=== PATIENT | female | born 1965 | race Caucasian/White ===

== ENCOUNTER 2020-02-24 15:54 | Emergency (ER) | payer BC, SELFPAY ==
[2020-02-24 15:55] VITALS: BP 146/101; PULSE 102; RESP 20; TEMP 36.1; O2SAT 98; BMI 29.2
--- NOTE | 2020-02-24 16:11 | EKG12_ITS ---
Test Reason : Blood Pressure : / mmHG Vent. Rate : 094 BPM Atrial Rate : 094 BPM P-R Int : 150 ms QRS Dur : 076 ms QT Int : 338 ms P-R-T Axes : 066 056 041 degrees QTc Int : 422 ms Normal sinus rhythm Normal ECG Confirmed by DYLON GONZALES, ANIBAL ([id number]), editor trade journal TONIO GAGNON ([id number]) on 02/29/2020 2:16:46 PM Referred By: JODY Confirmed By:TRINITY OSBORNE MD
--- NOTE | 2020-02-24 16:19 | ED.DCSUM_ITS ---
History of Present Illness Chief Complaint: Abd Pain Informant: Patient - Abdominal Pain/Flank Pain Onset: Today Context: Gradual Onset Timing: Continuous Quality: - - severe Location: Epigastric - Nausea/Vomiting/Emesis GI Symptom: Nausea, Vomiting Onset: Today Quality: Blood streaks - Diarrhea/Melena/Hematochezia GI Symptom: Diarrhea. Negative for: Melena, Hematochezia Onset: Today Narrative: Patient is a 54-year-old female that denies any significant past medical history presenting with severe abdominal pain. Patient states it woke her from sleep last night. It is in her epigastric region. The pain does not radiate. It has been constant. She states is very severe and she has associated nausea, vomiting diarrhea. She states she does not really have anything left to throw up but she started to have a little bit of blood in her vomit. She states that she is never had any like this before. She denies associated chest pain, shortness of breath or difficulty breathing. She denies any fever or chills. She denies any upper respiratory symptoms. She denies any urinary symptoms. No other complaints at this time. Past Medical History - Allergies and Home Meds Allergies/Adverse Reactions: Allergies acetaminophen [From Darvocet-N] Allergy (Verified 02/24/20 15:58) Angioedema propoxyphene [From Darvocet-N] Allergy (Verified 02/24/20 15:58) Angioedema Primary Care Physician: NOT,DEFINED [NON-STAFF] - Past Medical History: None Surgical History: cholecystectomy, - - ectopic surgery Review of Systems General: Denies: Chills, Fever, Sweats Eyes: Denies: Visual changes - bilaterally, Diplopia ENT: Denies: Rhinorrhea, Sore throat Cardiovascular: Denies: Chest pain, Palpitations Respiratory: Denies: Dyspnea, Cough, Dyspnea on exertion Gastrointestinal: Reports: Abdominal pain, Nausea, Vomiting, Diarrhea. Denies: Melena, Hematochezia Genitourinary: Denies: Dysuria, Hematuria, Frequency Musculoskeletal: Denies: Back pain, Extremity Pain Skin: Denies: Rash, Wounds Neurological: Denies: Headache, Weakness, Numbness Physical Exam Vital Signs/Narrative: Vital Signs Temp Pulse Resp BP Pulse Ox 02/24/20 15:55 97 F L 102 H 20 H 146/101 H 98 Inital Vital Signs reviewed: Yes General: Well nourished, Well developed, Acute Distress, - - She appears uncomfortable and is rolling around in the bed Head: Normocephalic, Atraumatic Eyes: Perrl, EOMI ENT: Moist mucous membranes, No rhinorrhea Neck: Supple, Nontender Cardiovascular: Regular rate, Regular rhythm, No murmurs Respiratory: No distress, CTA bilaterally, Chest nontender Abdomen: Soft, Nontender, Nondistended, Normal bowel sounds, - - No significant pain elicited on palpation, pain seems to be out of proportion to abdominal exam, no peritoneal signs. Negative for: Guarding, Rebound tenderness, Orellana's sign Back: Nontender, Normal Inspection. Negative for: CVA tenderness Extremities: Nontender, No edema Skin: Normal color, No rash Neurological: Alert, Oriented x3, Cranial nerves II-XII grossly intact, Normal Strength, Normal Sensation Psychological: Normal affect, Normal Mood Diagnostic/Tx/Re-eval Clinical Impression(s) from Imaging Studies Abdomen/Pelvis CT 02/24/20 16:24 IMPRESSION: Small right ovarian cyst. Postop change status post cholecystectomy. No evidence for small bowel obstruction or other acute abnormalities Electronically Signed: Evert Epstein MD at 17:55 EDT , Service support , Laboratory Data 02/24/20 02/24/20 02/24/20 17:03 17:03 17:50 WBC 15.6 H RBC 4.18 L Hgb 11.6 L Hct 36.1 L MCV 86.4 MCH 27.8 MCHC 32.1 RDW Std Deviation 45.7 H RDW Coeff of [place] 14.6 Plt Count 392 MPV 9.4 Immature Gran % (Auto) 0.400 Neut % (Auto) 91.8 H Lymph % (Auto) 5.8 L Kimble % (Auto) 1.9 Eos % (Auto) 0.0 Baso % (Auto) 0.1 Absolute Neuts (auto) 14.3 H Absolute Lymphs (auto) 0.91 Nucleated RBC % 0 Sodium 140 Potassium 3.9 Chloride 106 Carbon Dioxide 26.0 Anion Gap 8 BUN 9 Creatinine 0.68 Estim Creat Clear Calc 80.06 Est GFR (MDRD) Af Amer 118 Est GFR (MDRD) Non-Af 97 BUN/Creatinine Ratio 13.3 Glucose 128 H Calcium 8.7 Total Bilirubin 0.20 AST 27 ALT 35 Alkaline Phosphatase 130 H Troponin I < 0.015 Total Protein 8.3 H Albumin 3.8 Globulin 4.5 H Albumin/Globulin Ratio 0.8 L Lipase 91 Urine Color Yellow Urine Clarity Sl. Cloudy Urine pH 8.0 Ur Specific [place] 1.010 Urine Protein Negative Urine Glucose (UA) Normal Urine Ketones Negative Urine Occult Blood Negative Urine Nitrite Negative Urine Bilirubin Negative Urine Urobilinogen Normal Ur Leukocyte Esterase Negative Urine RBC 0 SEEN Urine WBC 0 SEEN Ur Squamous Epith Cells 0-5 SEEN Urine Bacteria 0 SEEN Urine Mucus 0 SEEN - Rhythm Strip Rhythm Strip: Sinus Rhythm Rate: 94 Ectopy: None - EKG Initial EKG Interpretation: Sinus Rhythm - 94, - - Normal intervals Normal axis Normal ST segments - Medical Decision Making Patient evaluated for epigastric abdominal pain. She appears nontoxic but quite uncomfortable.Patient's vital signs remarkable only for very mild tachycardia. Abdomen is soft with no significant tenderness to palpation. Patient does have an elevated white blood cell count of 15.6. Her CMP is remarkable only for mildly elevated alkaline phosphatase of 130. Her bilirubin is normal. Her lipase is normal. Her urinalysis is normal. CT the abdomen pelvis obtained which only shows a right ovarian cyst. This not correspond with patient's pain. Patient is not have any signs of free air, acute pancreatitis or acute liver pathology. CT does show a surgically removed gallbladder. On reevaluation patient still having a lot of pain. She initially received Zofran and IV morphine. Patient is been redosed with 0.5 mg of IV Dilaudid. She is now more comfortable. Patient is given IV Protonix I suspect she has stomach pain as a cause of her symptoms. She notes that she does have a history of heartburn. She is not on any antacids at baseline. Patient is given a GI cocktail which improves her symptoms further. She was discharged home in a course of Pepcid. She does request 1 pill prescription for strong pain medication in case her pain comes back severe tonight. This is given to her. She is given prescription for 1 oxycodone 5 mg. Patient does not currently have a PCP. She is given referral to PCP in [place] as well as a local 1. Patient states her goes to PCP Jennifer which is why she be interested in that. Patient's cardiac work-up is unremarkable. She is hemodynamically stable in the emergency room. I do not think she needs admission for her pain or surgical evaluation at this time. Is likely that she has peptic ulcer disease or gastritis as a cause of her symptoms. Patient is counseled on signs and symptoms requiring return to the emergency room. Patient verbalizes agreement and understand this plan. Patient discharged home in stable and improved condition. ED Disposition - Plan for ED Patient: Disposition: Home or Assisted Living Diagnosis: Epigastric abdominal pain Instructions: ED PEPTIC ULCER vs GASTRITIS Prescriptions: Oxycodone [Oxyir] 5 mg PO X1 PRN 1 Days #1 tab PRN Reason: Pain Score 6-10/10 Prescription Printed Famotidine [Pepcid] 20 mg PO BID #28 tab Prescription Printed Referrals: Jewel Ramos DO [NON-STAFF] - Mikey Farias MD [NON-STAFF] -
[2020-02-24] MEDS: 0.9% Normal Saline 1,000 ML 999 ML IV (16:22)
[2020-02-24] MEDS: Morphine 4 MG/ML Syringe IV (16:22)
[2020-02-24] MEDS: Ondansetron 4 MG/2 ML Vial IV (16:22)
--- NOTE | 2020-02-24 16:24 | CT_ITS ---
STUDY: CT ABDOMEN AND PELVIS WITH CONTRAST REASON FOR EXAM: Female, 54 years old. EPIGASTRIC ABD PAIN, NAUSEA/VOMITING SINCE THIS AM. DIARRHEA RADIATION DOSAGE (If Supplied By Facility): CTDIvol = ( 12.34 ) mGy, DLP = ( 589.47 ) mGycm TECHNIQUE: Transaxial images were obtained from the dome of the diaphragm to the symphysis pubis without oral contrast. IV 100 ML ISOVUE 300 was administered. Sagittal and coronal images were reconstructed. Individualized dose optimization techniques were used for this CT. COMPARISON: None. FINDINGS: The visualized lung bases are unremarkable. The visualized portions of the heart are within normal limits. Normal liver. Gallbladder has been removed surgically.. Normal spleen. Normal pancreas. Normal bilateral adrenal glands. Normal right kidney. Normal left kidney. Normal visualized stomach. Normal small intestine. Normal colon. The appendix is visualized and appears normal. Normal abdominal aorta. Normal inferior vena cava. Normal retroperitoneum. Normal urinary bladder. Uterus is mildly deviated towards the right. There is a cystic mass in the right adnexa measuring approximately 1.95 x 1.4 cm likely ovarian Normal abdominal wall. Lumbar spine demonstrates mild spondylosis CT/Abdomen/Pelvis W IV Cont ONLY IMPRESSION: Small right ovarian cyst. Postop change status post cholecystectomy. No evidence for small bowel obstruction or other acute abnormalities Electronically Signed: Evert Epstein MD at 17:55 EDT , Service support ,
[2020-02-24 17:11] LABS: Absolute Lymphocyte Count 0.91 X10^3/uL (0.83-4.51); Absolute Neutrophil Count 14.3 X10^3/uL (2.0-7.7); Basophil# 0.02 X10^3/uL; Basophil% 0.1 % (0-1); Hematocrit 36.1 % (37-47); Hemoglobin 11.6 g/dL (12.0-15.0); Lymphocyte # 0.91 X10^3/ul (4.0); Lymphocyte % 5.8 % (19-41); Mean Corp Hgb Conc 32.1 g/dL (32-36); Mean Corpuscular Hgb 27.8 pg (27.0-32.0); Mean Corpuscular Volume 86.4 fL (81-99); Mean Platelet Vol. 9.4 fl (6.2-12.0); Monocyte% 1.9 % (0-10); NRBC Flagged by Analyzer 0 % (0-5); Neutrophil # 14.26 X10^3/uL (2.7-7.7); Neutrophil % 91.8 % (47-70); Platelet Count 392 K/mm3 (150-450); RBC Distribution Width CV 14.6 % (11.6-14.6); RBC Distribution Width SD 45.7 fl (35.1-43.9); Red Blood Count 4.18 M/mm3 (4.2-5.4); White Blood Count 15.6 K/mm3 (4.4-11.0)
[2020-02-24 17:30] LABS: ALB/GLOB Ratio 0.8 RATIO (0.9-2.4); AST(SGOT) 27 U/L (15-37); Alanine Aminotransfer ALT/SGPT 35 U/L (13-56); Albumin, Serum 3.8 g/dL (3.2-5.0); Alkaline Phosphatase 130 U/L (45-117); Anion Gap 8 (5-15); BUN 9 mg/dL (7-18); BUN/Creat Ratio 13.3 RATIO (10-20); Calcium,Total 8.7 mg/dL (8.5-10.1); Chloride 106 mmol/L (98-107); Creatinine, Serum 0.68 mg/dL (0.55-1.02); EST Glomerular Filtration Rate 97 mL/min (>60); Est Glom Filt Rate - Afr Amer 118 mL/min (>60); Estimated Creatinine Clearance 80.06 ml/min; Globulin 4.5 g/dL (2.2-4.2); Glucose 128 mg/dL (74-106); Lipase 91 U/L (73-393); Potassium 3.9 mmol/L (3.5-5.1); Protein, Total 8.3 g/dL (6.4-8.2); Sodium Level 140 mmol/L (136-145)
[2020-02-24 17:57] LABS: Bacteria 0 SEEN /hpf (None Seen); Mucous, Urine 0 SEEN /hpf (<or=2+); Red Blood Cells-Urine 0 SEEN /hpf (0-5); White Blood Cells 0 SEEN /hpf (0-5)
[2020-02-24] MEDS: HYDROmorphone 0.5 MG/0.5 ML SYRINGE IV (17:58)
[2020-02-24 18:00] VITALS: BP 151/91; PULSE 100; RESP 18; O2SAT 90
[2020-02-24 18:01] LABS: Color, Urine Yellow (Yellow); Glucose, Dipstick Normal (Normal); Ketone-Dipstick Negative (Negative); Leukocyte Esterase-Dipstick Negative /ul (Negative); Nitrite-Dipstick Negative (Negative); Occult Blood-Urine Negative /ul (Negative); Protein-Dipstick Negative (Negative); Urine Bilirubin Dipstick Negative (Negative); Urine Clarity Sl. Cloudy (Clear); Urine Urobilinogen Normal (Normal)
[2020-02-24 18:13] LABS: Squamous Epithelial Cells - UA 0-5 SEEN /hpf (5-10)
[2020-02-24 19:01] VITALS: BP 118/60; PULSE 87; RESP 16; O2SAT 96
[2020-02-24] MEDS: Mag Hydrox/Al Hydrox/Simeth 30 ML UDC PO (19:08)
[2020-02-24 19:14] VITALS: BP 118/60; PULSE 96; RESP 16; O2SAT 97
== END 2020-02-24 19:53 | disposition home or self-care (01) ==
PROVIDERS: Emergency Provider Emergency Medicine; PCP Nurse Practitioner Family
DX: R10.13 Epigastric pain (principal); R11.2 Nausea with vomiting, unspecified; R19.7 Diarrhea, unspecified; R74.8 Abnormal levels of other serum enzymes; D72.829 Elevated white blood cell count, unspecified; N83.201 Unspecified ovarian cyst, right side; Z90.49 Acquired absence of other specified parts of digestive tract
CPT/HCPCS: 74177; 80053; 81001; 83690; 84484; 85025; 93005; 96365; 96366; 96375; 99285; J7030; A4216; J2405

== ENCOUNTER 2020-02-26 08:19 | Emergency (ER) | payer BC, SELFPAY ==
[2020-02-26 08:22] VITALS: BP 176/86; PULSE 84; RESP 17; TEMP 37; O2SAT 97; BMI 28.3
--- NOTE | 2020-02-26 09:02 | RAD_ITS ---
STUDY: X-RAY - ACUTE ABDOMINAL SERIES REASON FOR EXAM: Female, 54 years old. EPIGASTRIC PAIN TECHNIQUE: Single view of the chest. Supine, and upright view(s) of the abdomen were obtained. COMPARISON: None. FINDINGS: The lungs are clear and expanded. Normal size heart. Normal mediastinum and kelly. Normal visualized pulmonary arteries. Normal visualized aortic arch and descending thoracic aorta. There is a non-specific bowel gas pattern. The soft tissue structures of the abdomen and pelvis are unremarkable. Normal visualized osseous structures. RAD/Acute Abdomen Inc Chest IMPRESSION: Normal x-ray examination of the chest, abdomen, and pelvis. Electronically Signed: Uday Vazquez MD at 9:42 EDT , Service support ,
--- NOTE | 2020-02-26 09:02 | EKG12_ITS ---
Test Reason : ABDOMINAL PAIN Blood Pressure : / mmHG Vent. Rate : 075 BPM Atrial Rate : 075 BPM P-R Int : 140 ms QRS Dur : 076 ms QT Int : 358 ms P-R-T Axes : 067 063 052 degrees QTc Int : 399 ms Normal sinus rhythm Normal ECG Confirmed by MANOLO GONZALES, JAMIE ([id number]), writer editor TONIO GAGNON ([id number]) on 02/29/2020 1:52:11 PM Referred By: YANI Confirmed By:JAMIE FRENCH MD
--- NOTE | 2020-02-26 09:06 | ED.RN ---
NO OLD EKG
[2020-02-26] MEDS: 0.9% Normal Saline 1,000 ML 1000 ML IV (09:09)
[2020-02-26] MEDS: Ondansetron 4 MG/2 ML Vial IV (09:10)
[2020-02-26] MEDS: Morphine 4 MG/ML Syringe IV (09:11)
--- NOTE | 2020-02-26 09:20 | ED.DCSUM_ITS ---
- ER Visit Summary Date of Service: 02/26/20 Chief Complaint: Abdominal pain History of Present Illness: The patient is a 54 F who presents with epigastric abdominal pain for the past 3 days. Patient was seen here 2 days ago. Patient states her pain improved while she was here. Patient states her pain has been getting progressively worse. Patient states the pain is over the epigastric area. Patient describes the pain as throbbing and burning. Patient admits to some nausea and vomiting. Patient states she has been unable to keep anything down including her medications. Patient also admits to some diarrhea. Patient denies any fevers or chills. Patient denies any urinary complaints. Physical Examination: Vital signs are stable. Patient is afebrile. Patient is in no acute distress. Oral mucosa is pink and moist. Oropharynx is clear. Neck is supple. Trachea is midline. There is no JVD. Heart was regular rate and rhythm. Lungs are clear and equal bilaterally. Abdomen is soft. Bowel sounds are normal. There is epigastric tenderness. There is no rebound or guarding noted. Cranial nerves II through XII are intact. There are no focal motor or sensory deficits. Extremities are intact. There is no calf tenderness or edema. Test Results: CBC shows a slight leukocytosis of 11.8. This was improved compared to result from 2 days ago. Comprehensive metabolic profile was within normal limits. Urinalysis does not show any evidence of urinary tract infection. Serum hCG was negative. EKG showed normal sinus rhythm with a rate of 75. There are no acute ST or T wave changes. Troponin was normal. Acute abdominal x-rays were obtained. There is no acute intra-abdominal process. This was interpreted by the radiologist and myself. Emergency Department Course and Treatment: Patient was given IV fluids, Zofran, and morphine. Patient was given a repeat dose of Dilaudid. Patient was feeling better after this. Patient was given a prescription for Zofran. Patient was also given a prescription for 2 Percocet tablets to take as needed for pain. Patient was instructed to continue her Pepcid as previously prescribed. Patient was instructed to follow-up with her primary care physician in 3 to 5 days. Patient understood and was agreeable with the plan. All questions were answered. Disposition: Discharge home Impression: Epigastric abdominal pain This note was generated with [employer] software. It may contain incorrect words, spelling, and punctuation that were not noted in review of the chart prior to signing ED Disposition - Plan for ED Patient: Disposition: Home or Assisted Living Diagnosis: Epigastric abdominal pain Instructions: ED Abdominal Pain Unkn Cause Fem Prescriptions: Oxycodone [Oxyir] 5 mg PO Q4H PRN PRN 1 Days #2 tab PRN Reason: Pain Score 6-10/10 Prescription Printed Ondansetron [Zofran Odt] 4 mg PO Q8H PRN PRN #10 tab PRN Reason: Nausea Prescription Printed Referrals: Kady Hernandez NP-C [Primary Care Provider] - 3-5 Days
[2020-02-26] MEDS: Mag Hydrox/Al Hydrox/Simeth 30 ML UDC PO (09:22)
[2020-02-26 09:30] LABS: Absolute Lymphocyte Count 1.72 X10^3/uL (0.83-4.51); Absolute Neutrophil Count 8.8 X10^3/uL (2.0-7.7); Basophil# 0.05 X10^3/uL; Basophil% 0.4 % (0-1); Eosinophil# 0.25 X10^3/uL; Eosinophils% 2.1 % (0-5); Hematocrit 36.3 % (37-47); Hemoglobin 11.6 g/dL (12.0-15.0); Lymphocyte # 1.72 X10^3/ul (4.0); Lymphocyte % 14.6 % (19-41); Mean Corpuscular Hgb 27.5 pg (27.0-32.0); Mean Platelet Vol. 9.6 fl (6.2-12.0); Monocyte# 0.87 X10^3/uL; Monocyte% 7.4 % (0-10); NRBC Flagged by Analyzer 0 % (0-5); Neutrophil # 8.83 X10^3/uL (2.7-7.7); Neutrophil % 75.1 % (47-70); Platelet Count 407 K/mm3 (150-450); RBC Distribution Width CV 14.6 % (11.6-14.6); RBC Distribution Width SD 45.5 fl (35.1-43.9); Red Blood Count 4.22 M/mm3 (4.2-5.4); White Blood Count 11.8 K/mm3 (4.4-11.0)
[2020-02-26 09:47] LABS: ALB/GLOB Ratio 0.9 RATIO (0.9-2.4); AST(SGOT) 25 U/L (15-37); Alanine Aminotransfer ALT/SGPT 30 U/L (13-56); Albumin, Serum 3.7 g/dL (3.2-5.0); Alkaline Phosphatase 118 U/L (45-117); Anion Gap 9 (5-15); BUN 12 mg/dL (7-18); BUN/Creat Ratio 16.3 RATIO (10-20); Calcium,Total 8.8 mg/dL (8.5-10.1); Chloride 105 mmol/L (98-107); Creatinine, Serum 0.74 mg/dL (0.55-1.02); EST Glomerular Filtration Rate 88 mL/min (>60); Est Glom Filt Rate - Afr Amer 106 mL/min (>60); Estimated Creatinine Clearance 73.56 ml/min; Globulin 4.1 g/dL (2.2-4.2); Glucose 130 mg/dL (74-106); Lipase 131 U/L (73-393); Potassium 3.4 mmol/L (3.5-5.1); Protein, Total 7.8 g/dL (6.4-8.2); Sodium Level 141 mmol/L (136-145)
[2020-02-26] MEDS: HYDROmorphone 0.5 MG/0.5 ML SYRINGE IV (09:56)
[2020-02-26 10:26] VITALS: BP 130/93; PULSE 89; RESP 14; O2SAT 96
[2020-02-26 10:51] LABS: Mucous, Urine 0 SEEN /hpf (<or=2+); Red Blood Cells-Urine 0 SEEN /hpf (0-5); Squamous Epithelial Cells - UA 0 SEEN /hpf (5-10)
[2020-02-26 10:57] LABS: Color, Urine Yellow (Yellow); Glucose, Dipstick Normal (Normal); Ketone-Dipstick 5 mg/dl (Negative); Leukocyte Esterase-Dipstick 25 /ul (Negative); Nitrite-Dipstick Negative (Negative); Occult Blood-Urine Negative /ul (Negative); Protein-Dipstick Negative (Negative); Specific Gravity, Urine 1.015 (1.002-1.030); Urine Bilirubin Dipstick Negative (Negative); Urine Clarity Clear (Clear); Urine Urobilinogen Normal (Normal)
[2020-02-26 11:17] LABS: Bacteria 1+ /hpf (None Seen); White Blood Cells 0-5 SEEN /hpf (0-5)
[2020-02-26 11:23] LABS: Internal QC Validated? YES +Cl - CLEAR BKGD; Pregnancy, Serum, hCG Quali. NEGATIVE Negative
[2020-02-26 12:36] VITALS: BP 125/77; PULSE 71; RESP 14; O2SAT 96
[2020-02-26 13:52] VITALS: BP 140/81; PULSE 80; RESP 16; O2SAT 96
== END 2020-02-26 13:53 | disposition home or self-care (01) ==
PROVIDERS: Emergency Provider Emergency Medicine; PCP Nurse Practitioner Family
DX: R10.13 Epigastric pain (principal); R11.2 Nausea with vomiting, unspecified; R19.7 Diarrhea, unspecified
CPT/HCPCS: 74022; 80053; 81001; 83690; 84484; 84703; 85025; 93005; 96361; 96374; 96375; 99285; J7030; A4216; J2405

== ENCOUNTER 2020-07-01 11:48 | Emergency (ER) | payer BC, SELFPAY ==
[2020-07-01 11:48] VITALS: BP 178/97; PULSE 107; RESP 18; TEMP 36.9; O2SAT 100; BMI 25.4
--- NOTE | 2020-07-01 11:50 | ED.VIS.GEN ---
History of Present Illness Chief Complaint: Abd Pain Informant: Patient Narrative: Patient presenting with burning stomach pain after eating a [employer] lacy double cheeseburger last evening. She states that she has had similar pain like this in the past and was seen in the ED. She states that after her last treatment in the ED she had been doing fine. She states that she has been vomiting all night. She initially could not make GI follow-up due to COVID?19 pandemic. She has an appointment to see her PCP to get a referral. She denies fever. She denies black or bloody stools. She denies chest pain or shortness of breath. Past Medical History - Allergies and Home Meds Allergies/Adverse Reactions: Allergies acetaminophen [From Darvocet-N] Allergy (Verified 07/01/20 11:48) Angioedema propoxyphene [From Darvocet-N] Allergy (Verified 07/01/20 11:48) Angioedema Primary Care Physician: Kady Hernandez NP-C [Primary Care Provider] - Prior records reviewed: Yes Surgical History: cholecystectomy, - - ectopic surgery Lives: Spouse/ Significant Other Smoking Status: Never smoker Alcohol: None Drugs: None Review of Systems General: Denies: Chills, Fever, Sweats Eyes: Denies: Visual changes - bilaterally, Diplopia ENT: Denies: Rhinorrhea, Sore throat Cardiovascular: Denies: Chest pain, Palpitations Respiratory: Denies: Dyspnea, Cough, Dyspnea on exertion Gastrointestinal: Reports: Abdominal pain, Nausea, Vomiting. Denies: Melena, Hematochezia Genitourinary: Denies: Dysuria, Hematuria Musculoskeletal: Denies: Myalgias Skin: Denies: Rash Neurological: Denies: Headache, Weakness Physical Exam General: Well nourished, No Acute Distress Head: Normocephalic, Atraumatic Eyes: Perrl. Negative for: Scleral icterus ENT: Moist mucous membranes Cardiovascular: Regular rate, Regular rhythm Respiratory: No distress Abdomen: Soft, - - Tenderness to palpation epigastric region. Back: Nontender Extremities: Nontender Skin: Normal color, No rash. Negative for: Jaundice Neurological: Alert, Oriented x3 Psychological: Normal affect Diagnostic/Tx/Re-eval - Medical Decision Making Resents with epigastric pain similar to previous pain she has had with gastric ulcer. She states that she ate a lacy double cheeseburger and this started her pain. She states is not a drinker and she has no history of pancreatitis. She was given morphine and Zofran and this did help her pain. She requests a second dose prior to discharge. I did send her home with Pepcid. She is counseled on a bland diet. She is to follow-up with her PCP. She was given return precautions. Impression: 1. Epigastric pain 2. History of gastric ulcer ED Disposition - Plan for ED Patient: Disposition: Home or Assisted Living Instructions: ED Epigastric Pain [facility] Prescriptions: Ondansetron [Ondansetron Odt] 4 mg PO Q8 #14 tab.rapdis Prescription Printed Famotidine [Pepcid] 20 mg PO BID #28 tab Prescription Printed Oxycodone HCl/Acetaminophen [Percocet 5/325] 1 tab PO Q6H PRN PRN 1 Days #2 tab PRN Reason: Pain Score 4-5/10 Prescription Printed Referrals: Kady Hernandez, [facility] [Primary Care Provider] -
[2020-07-01] MEDS: 0.9% Normal Saline 1,000 ML 1000 ML IV (12:10)
[2020-07-01] MEDS: Famotidine 200 MG/20 ML MDV 20 MG in 0.9% Normal Saline (Pres. free 8 ML 300 MG IV (12:10)
[2020-07-01] MEDS: Ondansetron 4 MG/2 ML Vial IV (12:10)
[2020-07-01] MEDS: Morphine 4 MG/ML Syringe IV (12:10)
[2020-07-01 12:32] LABS: Absolute Lymphocyte Count 0.83 X10^3/uL (0.83-4.51); Absolute Neutrophil Count 8.9 X10^3/uL (2.0-7.7); Basophil# 0.02 X10^3/uL; Basophil% 0.2 % (0-1); Hematocrit 39.2 % (37-47); Hemoglobin 13.1 g/dL (12.0-15.0); Lymphocyte # 0.83 X10^3/ul (4.0); Lymphocyte % 8.3 % (19-41); Mean Corp Hgb Conc 33.4 g/dL (32-36); Mean Corpuscular Volume 86.9 fL (81-99); Monocyte# 0.22 X10^3/uL; Monocyte% 2.2 % (0-10); NRBC Flagged by Analyzer 0 % (0-5); Neutrophil # 8.91 X10^3/uL (2.7-7.7); Platelet Count 363 K/mm3 (150-450); RBC Distribution Width CV 14.5 % (11.6-14.6); RBC Distribution Width SD 46.2 fl (35.1-43.9); Red Blood Count 4.51 M/mm3 (4.2-5.4)
[2020-07-01 12:40] LABS: Lipase 49 U/L (73-393)
[2020-07-01] MEDS: oxyCODONE 5 MG Tablet PO (14:35)
[2020-07-01 14:41] VITALS: BP 128/67; PULSE 91; RESP 17; O2SAT 100
--- NOTE | 2020-07-01 14:42 | ED.RN ---
IV DC'ED, CATHETER INTACT, SMALL GAUZE DRESSING PLACED. DISCHARGE INSTRUCTIONS GIVEN TO AND REVIEWED WITH PATIENT, PATIENT DENIES QUESTIONS OR CONCERNS AND VOICES UNDERSTANDING OF DISCHARGE INSTRUCTIONS. PT AMBULATES OUT OF ROOM WITHOUT DIFFICULTY.
== END 2020-07-01 14:43 | disposition home or self-care (01) ==
PROVIDERS: Emergency Provider Student in an Organized Health Care Education/Training Program; PCP Nurse Practitioner Family
DX: R10.13 Epigastric pain (principal); R11.10 Vomiting, unspecified; Z87.11 Personal history of peptic ulcer disease; Z90.49 Acquired absence of other specified parts of digestive tract; Z79.899 Other long term (current) drug therapy
CPT/HCPCS: 83690; 85025; 96361; 96374; 96375; 99284; J7030; J2405; J3490

== ENCOUNTER 2020-07-03 06:46 | Emergency (ER) | payer BC, SELFPAY ==
[2020-07-03 06:47] VITALS: BP 144/73; PULSE 72; RESP 19; TEMP 36.8; O2SAT 97; BMI 38.3
--- NOTE | 2020-07-03 07:04 | CT_ITS ---
STUDY: CT ABDOMEN AND PELVIS WITH CONTRAST REASON FOR EXAM: Female, 54 years old. ABD PAIN, VOMITING RADIATION DOSAGE (If Supplied By Facility): CTDIvol = ( 10.21 ) mGy, DLP = ( 477.99 ) mGycm TECHNIQUE: Transaxial images were obtained from the dome of the diaphragm to the symphysis pubis without oral contrast. IV 100mL Isovue-300 was administered. Sagittal and coronal images were reconstructed. Individualized dose optimization techniques were used for this CT. COMPARISON: Comparison is made with prior examination dated 02/24/2020. FINDINGS: The visualized lung bases are unremarkable. The visualized portions of the heart are within normal limits. Normal liver. There are surgical clips in the gallbladder fossa consistent with a prior cholecystectomy. The common bile duct measures 10.4 mm in diameter most likely secondary to the post cholecystectomy state. Normal spleen. Normal pancreas. Normal bilateral adrenal glands. Normal right kidney. Normal left kidney. There is a small hiatal hernia. Normal small intestine. Normal colon. The appendix is visualized and appears normal. Normal abdominal aorta. Normal inferior vena cava. Normal retroperitoneum. Normal urinary bladder. Normal abdominal wall. Mild levoscoliosis. Loss of the normal lumbar lordosis. Disc space narrowing and disc degeneration at the L5-S1 level. CT/Abdomen/Pelvis W IV Cont ONLY IMPRESSION: Status post cholecystectomy. Mildly dilated common bile duct although this may be normal for the postcholecystectomy state. Electronically Signed: Ravindra Canas, at 8:06 EDT , Service support ,
--- NOTE | 2020-07-03 07:05 | ED.DCSUM_ITS ---
History of Present Illness Chief Complaint: Abd Pain Informant: Patient Narrative: Patient states that last she developed burning epigastric pain vomiting and diarrhea. She was seen in the emergency department on the had a normal white blood cell count and lipase level. She states that after morphine and nausea medication she felt better. She was discharged home with Zofran prescription for Pepcid. She tells me that she could not get the Pepcid filled due to a national shortage. She states she is continued to vomit beginning last night and the pain has returned. Does not radiate to the back. No shortness of breath or chest pain. She continues to have diarrhea. No fevers. She has had prior cholecystectomy. No history of pancreatitis. She denies any history of colitis or bowel obstruction. She reports she has an upcoming appointment with gastroenterology. Past Medical History - Allergies and Home Meds Allergies/Adverse Reactions: Allergies acetaminophen [From Darvocet-N] Allergy (Verified 07/03/20 06:51) Angioedema propoxyphene [From Darvocet-N] Allergy (Verified 07/03/20 06:51) Angioedema Primary Care Physician: Kady Hernandez NP-C [Primary Care Provider] - Surgical History: cholecystectomy, - - ectopic surgery Smoking Status: Former smoker Review of Systems General: Denies: Chills, Fever, Sweats Eyes: Denies: Visual changes - bilaterally, Diplopia ENT: Denies: Rhinorrhea, Sore throat Cardiovascular: Denies: Chest pain, Palpitations Respiratory: Denies: Dyspnea, Cough, Dyspnea on exertion Gastrointestinal: Reports: Abdominal pain, Nausea, Vomiting, Diarrhea. Denies: Melena, Hematochezia Genitourinary: Denies: Dysuria, Hematuria, Frequency Musculoskeletal: Denies: Back pain, Extremity Pain Skin: Denies: Rash, Wounds Neurological: Denies: Headache, Weakness, Numbness Physical Exam Vital Signs/Narrative: Vital Signs Temp Pulse Resp BP Pulse Ox 07/03/20 06:47 98.2 F 72 19 H 144/73 H 97 Inital Vital Signs reviewed: Yes General: Well nourished, Well developed, No Acute Distress, - - Patient holding her upper abdomen and writhing in bed. Head: Normocephalic, Atraumatic Eyes: Perrl, EOMI ENT: Moist mucous membranes, No rhinorrhea Neck: Supple, Nontender Cardiovascular: Regular rate, Regular rhythm, No murmurs Respiratory: No distress, CTA bilaterally, Chest nontender Abdomen: Soft, Nondistended, Normal bowel sounds, Tender. Negative for: Guarding, Rebound tenderness Back: Nontender, Normal Inspection Extremities: Nontender, No edema Skin: Normal color, No rash Neurological: Alert, Oriented x3, Cranial nerves II-XII grossly intact, Normal Strength, Normal Sensation Psychological: Normal affect, Normal Mood Diagnostic/Tx/Re-eval Clinical Impression(s) from Imaging Studies Abdomen/Pelvis CT 07/03/20 07:04 IMPRESSION: Status post cholecystectomy. Mildly dilated common bile duct although this may be normal for the postcholecystectomy state. Electronically Signed: Ravindra Canas, at 8:06 EDT , Service support , Laboratory Last Values WBC 10.7 K/mm3 (4.4-11.0) 07/03/20 07:00 RBC 4.64 M/mm3 (4.2-5.4) 07/03/20 07:00 Hgb 13.4 g/dL (12.0-15.0) 07/03/20 07:00 Hct 41.0 % (37-47) 07/03/20 07:00 MCV 88.4 fL (81-99) 07/03/20 07:00 MCH 28.9 pg (27.0-32.0) 07/03/20 07:00 MCHC 32.7 g/dL (32-36) 07/03/20 07:00 RDW Std Deviation 46.5 fl (35.1-43.9) H 07/03/20 07:00 RDW Coeff of Parish 14.6 % (11.6-14.6) 07/03/20 07:00 Plt Count 349 K/mm3 (150-450) 07/03/20 07:00 MPV 9.7 fl (6.2-12.0) 07/03/20 07:00 Immature Gran % (Auto) 0.400 % (0.0-0.9) 07/03/20 07:00 Neut % (Auto) 74.0 % (47-70) H 07/03/20 07:00 Lymph % (Auto) 16.6 % (19-41) L 07/03/20 07:00 [place]ell % (Auto) 5.9 % (0-10) 07/03/20 07:00 Eos % (Auto) 2.6 % (0-5) 07/03/20 07:00 Baso % (Auto) 0.5 % (0-1) 07/03/20 07:00 Absolute Neuts (auto) 7.9 X10^3/uL (2.0-7.7) H 07/03/20 07:00 Absolute Lymphs (auto) 1.78 X10^3/uL (0.83-4.51) 07/03/20 07:00 Nucleated RBC % 0 % (0-5) 07/03/20 07:00 Sodium 141 mmol/L (136-145) 07/03/20 07:00 Potassium 3.6 mmol/L (3.5-5.1) 07/03/20 07:00 Chloride 107 mmol/L (98-107) 07/03/20 07:00 Carbon Dioxide 25.0 mmol/L (21.0-32.0) 07/03/20 07:00 Anion Gap 9 (5-15) 07/03/20 07:00 BUN 10 mg/dL (7-18) 07/03/20 07:00 Creatinine 0.72 mg/dL (0.55-1.02) 07/03/20 07:00 Estim Creat Clear Calc 75.61 ml/min 07/03/20 07:00 Est GFR (MDRD) Af Amer 110 mL/min (>60) 07/03/20 07:00 Est GFR (MDRD) Non-Af 91 mL/min (>60) 07/03/20 07:00 BUN/Creatinine Ratio 14.0 RATIO (10-20) 07/03/20 07:00 Glucose 127 mg/dL (74-106) H 07/03/20 07:00 Calcium 9.3 mg/dL (8.5-10.1) 07/03/20 07:00 Total Bilirubin 0.30 mg/dL (0.20-1.00) 07/03/20 07:00 AST 19 U/L (15-37) 07/03/20 07:00 ALT 23 U/L (13-56) 07/03/20 07:00 Alkaline Phosphatase 98 U/L (45-117) 07/03/20 07:00 Total Protein 7.7 g/dL (6.4-8.2) 07/03/20 07:00 Albumin 3.8 g/dL (3.2-5.0) 07/03/20 07:00 Globulin 3.9 g/dL (2.2-4.2) 07/03/20 07:00 Albumin/Globulin Ratio 1.0 RATIO (0.9-2.4) 07/03/20 07:00 Lipase 107 U/L (73-393) 07/03/20 07:00 - Medical Decision Making Patient received IV fluids morphine and Zofran. This did not alter her pain. She received a dose of Toradol this did not change her pain. She states that she threw up her GI cocktail. Patient received a dose of Bentyl and a milligram of Ativan and now states her pain is better. Basic labs are negative her white count is unchanged. Her CT of the abdomen pelvis is also negative. I do not have an explanation for the patient's pain however I do not see any acute emergency that she will need to be admitted for. 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 I can write for Bentyl, Phenergan suppositories and tablets as the Zofran was not working at home, and Protonix as she cannot get the Pepcid filled. ED Disposition - Plan for ED Patient: Disposition: Home or Assisted Living Diagnosis: Acute abdominal pain, Vomiting Instructions: ED Abdominal Pain Unkn Cause Fem Prescriptions: Dicyclomine HCl [Bentyl] 20 mg PO TIDAC #30 cap Prescription Printed proMETHazine suppository [Phenergan] 25 mg SD Q8H PRN #10 suppos. PRN Reason: Vomiting Prescription Printed proMETHazine tablet [Phenergan tablet] 25 mg PO Q8H PRN PRN #10 tab PRN Reason: Vomiting Prescription Printed Pantoprazole Sodium [Protonix] 20 mg PO BID #20 tab Prescription Printed Referrals: Kady Hernandez, ALMA-C [Primary Care Provider] - As soon as possible
[2020-07-03 07:08] LABS: Absolute Lymphocyte Count 1.78 X10^3/uL (0.83-4.51); Absolute Neutrophil Count 7.9 X10^3/uL (2.0-7.7); Basophil# 0.05 X10^3/uL; Basophil% 0.5 % (0-1); Eosinophil# 0.28 X10^3/uL; Eosinophils% 2.6 % (0-5); Hemoglobin 13.4 g/dL (12.0-15.0); Lymphocyte # 1.78 X10^3/ul (4.0); Lymphocyte % 16.6 % (19-41); Mean Corp Hgb Conc 32.7 g/dL (32-36); Mean Corpuscular Hgb 28.9 pg (27.0-32.0); Mean Corpuscular Volume 88.4 fL (81-99); Mean Platelet Vol. 9.7 fl (6.2-12.0); Monocyte# 0.63 X10^3/uL; Monocyte% 5.9 % (0-10); NRBC Flagged by Analyzer 0 % (0-5); Neutrophil # 7.93 X10^3/uL (2.7-7.7); Platelet Count 349 K/mm3 (150-450); RBC Distribution Width CV 14.6 % (11.6-14.6); RBC Distribution Width SD 46.5 fl (35.1-43.9); Red Blood Count 4.64 M/mm3 (4.2-5.4); White Blood Count 10.7 K/mm3 (4.4-11.0)
[2020-07-03] MEDS: Ondansetron 4 MG/2 ML Vial IV (07:16)
[2020-07-03] MEDS: 0.9% Normal Saline 1,000 ML 1000 ML IV (07:16)
[2020-07-03 07:30] LABS: AST(SGOT) 19 U/L (15-37); Alanine Aminotransfer ALT/SGPT 23 U/L (13-56); Albumin, Serum 3.8 g/dL (3.2-5.0); Alkaline Phosphatase 98 U/L (45-117); Anion Gap 9 (5-15); BUN 10 mg/dL (7-18); Calcium,Total 9.3 mg/dL (8.5-10.1); Chloride 107 mmol/L (98-107); Creatinine, Serum 0.72 mg/dL (0.55-1.02); EST Glomerular Filtration Rate 91 mL/min (>60); Est Glom Filt Rate - Afr Amer 110 mL/min (>60); Estimated Creatinine Clearance 75.61 ml/min; Globulin 3.9 g/dL (2.2-4.2); Glucose 127 mg/dL (74-106); Lipase 107 U/L (73-393); Potassium 3.6 mmol/L (3.5-5.1); Protein, Total 7.7 g/dL (6.4-8.2); Sodium Level 141 mmol/L (136-145)
[2020-07-03] MEDS: Morphine 4 MG/ML Syringe IV (07:34)
[2020-07-03] MEDS: Mag Hydrox/Al Hydrox/Simeth 30 ML UDC PO (08:04)
[2020-07-03] MEDS: Ketorolac 30 MG/ML Syringe IV (09:06)
[2020-07-03 09:08] VITALS: BP 161/80; PULSE 70; RESP 18; O2SAT 96
[2020-07-03] MEDS: LORazepam 2 MG/ML Syringe 1 MG IV (10:07)
[2020-07-03] MEDS: Dicyclomine 20 MG/2 ML Vial IM (10:09)
[2020-07-03 11:38] VITALS: RESP 16
== END 2020-07-03 11:41 | disposition home or self-care (01) ==
PROVIDERS: Emergency Provider Emergency Medicine; PCP Nurse Practitioner Family
DX: R11.2 Nausea with vomiting, unspecified (principal); R10.13 Epigastric pain; Z87.891 Personal history of nicotine dependence; R19.7 Diarrhea, unspecified; Z90.49 Acquired absence of other specified parts of digestive tract
CPT/HCPCS: 74177; 80053; 83690; 85025; 96361; 96372; 96374; 96375; 99284; J7030; Q9967; A4216; J2405

== ENCOUNTER 2020-10-11 16:29 | Emergency (ER) | payer BC, SELFPAY ==
[2020-10-11 16:30] VITALS: BP 147/92; PULSE 108; RESP 16; TEMP 36.3; O2SAT 97; BMI 22.2
--- NOTE | 2020-10-11 16:56 | ED.RN ---
PT REPORTED FEVER 102, VOMITING, NAUSEA AND H/A. PT DENIES EVER HAVING MIGRAINES.
[2020-10-11] MEDS: Acetaminophen 500 MG Tablet 1000 MG PO (17:58)
[2020-10-11] MEDS: Morphine 4 MG/ML Syringe IV (17:59)
[2020-10-11] MEDS: Ondansetron 4 MG/2 ML Vial IV (17:59)
[2020-10-11 18:06] VITALS: O2SAT 96
[2020-10-11 18:09] LABS: Absolute Lymphocyte Count 0.84 X10^3/uL (0.83-4.51); Absolute Neutrophil Count 6.1 X10^3/uL (2.0-7.7); Basophil# 0.01 X10^3/uL; Basophil% 0.1 % (0-1); Eosinophil# 0.02 X10^3/uL; Eosinophils% 0.3 % (0-5); Hematocrit 37.2 % (37-47); Hemoglobin 12.2 g/dL (12.0-15.0); Lymphocyte # 0.84 X10^3/ul (4.0); Lymphocyte % 10.6 % (19-41); Mean Corp Hgb Conc 32.8 g/dL (32-36); Mean Corpuscular Hgb 29.5 pg (27.0-32.0); Mean Corpuscular Volume 90.1 fL (81-99); Monocyte# 0.92 X10^3/uL; Monocyte% 11.7 % (0-10); NRBC Flagged by Analyzer 0 % (0-5); Neutrophil # 6.06 X10^3/uL (2.7-7.7); Neutrophil % 76.8 % (47-70); Platelet Count 301 K/mm3 (150-450); RBC Distribution Width CV 13.2 % (11.6-14.6); RBC Distribution Width SD 43.7 fl (35.1-43.9); Red Blood Count 4.13 M/mm3 (4.2-5.4); White Blood Count 7.9 K/mm3 (4.4-11.0)
--- NOTE | 2020-10-11 18:15 | RAD_ITS ---
STUDY: X-RAY CHEST REASON FOR EXAM: Female, 55 years old. HEADACHE, N/V TECHNIQUE: Single AP portable view of the chest. COMPARISON: 02/26/2020. FINDINGS: The lungs are clear and expanded. There is no demonstrated pleural abnormality. Normal size heart. Normal mediastinum and kelly. Normal visualized pulmonary arteries. Normal visualized aortic arch and descending thoracic aorta. Normal visualized thoracic spine. Normal visualized ribs, clavicles, and shoulders. There is no demonstrated abnormality of the visualized soft tissue structures of the upper abdomen. RAD/Chest 1 View (Portable) IMPRESSION: Normal x-ray examination of the chest. Electronically Signed: Israel Carroll MD at 19:04 EST , Service support ,
[2020-10-11 18:20] LABS: AST(SGOT) 51 U/L (15-37); Alanine Aminotransfer ALT/SGPT 60 U/L (13-56); Albumin, Serum 3.8 g/dL (3.2-5.0); Alkaline Phosphatase 111 U/L (45-117); Anion Gap 7 (5-15); BUN 10 mg/dL (7-18); BUN/Creat Ratio 15.6 RATIO (10-20); Calcium,Total 9.2 mg/dL (8.5-10.1); Chloride 103 mmol/L (98-107); Creatinine, Serum 0.64 mg/dL (0.55-1.02); EST Glomerular Filtration Rate 103 mL/min (>60); Est Glom Filt Rate - Afr Amer 124 mL/min (>60); Estimated Creatinine Clearance 84.09 ml/min; Globulin 3.9 g/dL (2.2-4.2); Glucose 95 mg/dL (74-106); Potassium 3.7 mmol/L (3.5-5.1); Protein, Total 7.7 g/dL (6.4-8.2); Sodium Level 137 mmol/L (136-145)
[2020-10-11 18:26] LABS: D-Dimer Quantitative (DVT/PE) 0.42 FEU/ug/m (0.27-0.49)
[2020-10-11 18:39] LABS: Lactic Acid 0.6 mmol/L (0.4-1.9)
--- NOTE | 2020-10-11 19:36 | ED.VISSUMM ---
- ER Visit Summary Date of Service: 10/11/20 Chief Complaint: Headache, fever, cough History of Present Illness: The patient is a [address] Stevenson. She reports that she became ill yesterday. She states she has had a fever to 103 degrees. She has had a sore throat and 6 out of 10 severity. She has a cough productive green sputum without blood. She has chest pain with coughing only. She is felt mildly short of breath. She has been nauseated and vomited multiple times. She is also had multiple episodes of diarrhea. She states that her headache is 10 out of 10 severity. Is a sharp diffuse pain. She also complains of generalized weakness. Patient reports that her aunt has Covid. She has not been around her since she was diagnosed. She does wear a mask. Physical Examination: Vitals: Stable. Afebrile. General: Well-nourished and well-developed. Head: Normocephalic atraumatic. Neck: Supple, no lymphadenopathy. No JVD. Nontender. Cardiovascular: Regular rate and rhythm. No murmurs. Respiratory: No respiratory distress. Clear to auscultation bilaterally. Abdominal: Soft, nontender, nondistended, normal bowel sounds. No guarding, rebound, or peritoneal signs. Back: Nontender. Extremities: Nontender, no edema. Skin: Normal color, no rash. Neurologic: Alert and oriented ?3. Cranial nerves II through XII are intact. Normal strength and sensation. Psych: Normal affect. Test Results: CBC shows 7 neutrophils 77, lymphocytes 11, monocytes 12. Chem-7 is normal. LFTs show an AST of 51 ALT of 60. D-dimer is negative. Clinical Impression(s) from Imaging Studies Chest X-Ray 10/11/20 18:15 IMPRESSION: Normal x-ray examination of the chest. Electronically Signed: Israel Carroll MD at 19:04 EST , Service support , Emergency Department Course and Treatment: Patient had an IV placed. She given morphine and Zofran IV. She is resting more comfortably. Treatment Plan: Had a prolonged scratch the patient that at this time she is not hypoxic, but her symptoms are quite typical of Covid. She will be discharged with Zofran. Instructed to push fluids. Follow-up with her primary care physician in 10 to 14 days if not improving. Quarantine. She will be called with the results of her Covid test if it is positive. Return to the emergency department for any worsening symptoms. Disposition: To home in improved and stable condition. Impression: 1. URI, possible COVID-19. This note was generated with [employer] dictation software. It may contain incorrect words, spelling, and punctuation that were not noted in review of the chart prior to signing ED Disposition - Plan for ED Patient: Instructions: ED Upper Resp Infec No Abx Tx Prescriptions: Ondansetron [Zofran Odt] 4 mg PO Q8H PRN PRN #10 tablet PRN Reason: Nausea Referrals: Kady Hernandez LEAD SIMULATION MODELING ENGINEER, LEAD SIMULATION MODELING ENGINEER-C [Primary Care Provider] - 10-14 Days if not better
[2020-10-11 19:44] VITALS: BP 116/66; PULSE 80; RESP 16; O2SAT 96
== END 2020-10-11 19:55 | disposition home or self-care (01) ==
PROVIDERS: Emergency Provider Emergency Medicine; PCP Nurse Practitioner Family
DX: J06.9 Acute upper respiratory infection, unspecified (principal); Z20.828 Contact with and (suspected) exposure to other viral communicable diseases; R11.2 Nausea with vomiting, unspecified; R50.9 Fever, unspecified; R07.9 Chest pain, unspecified; K21.9 Gastro-esophageal reflux disease without esophagitis
CPT/HCPCS: 71045; 80053; 83605; 85025; 85379; 87040; 87633; 87635; 96374; 96375; 99285; A4216; J2405; U0003

== ENCOUNTER 2020-10-12 17:38 | Emergency (ER) | payer BC, SELFPAY ==
[2020-10-11 16:30] VITALS: BMI 22.2
[2020-10-12 17:39] VITALS: BP 150/84; PULSE 91; RESP 18; TEMP 36.5; O2SAT 98; BMI 21.9
[2020-10-12 17:42] VITALS: BP 150/84; PULSE 87; RESP 16; TEMP 36.5; O2SAT 99
--- NOTE | 2020-10-12 18:00 | EKG12_ITS ---
Test Reason : CP Blood Pressure : / mmHG Vent. Rate : 083 BPM Atrial Rate : 083 BPM P-R Int : 122 ms QRS Dur : 082 ms QT Int : 354 ms P-R-T Axes : 083 088 078 degrees QTc Int : 415 ms Normal sinus rhythm Right atrial enlargement Borderline ECG Confirmed by MANOLO GONZALES, JAMIE ([id number]), image editor CECY NORIEGA ([id number]) on 10/13/2020 10:55:42 AM Referred By: Confirmed By:JAMIE FRENCH MD
--- NOTE | 2020-10-12 18:00 | RAD_ITS ---
STUDY: X-RAY CHEST REASON FOR EXAM: Female, 55 years old. CHEST PAIN AND SOB. TECHNIQUE: AP portable COMPARISON: 10/11/2020 FINDINGS: The lungs are clear and expanded. There is no demonstrated pleural abnormality. Normal size heart. Normal mediastinum and kelly. Normal visualized pulmonary arteries. Normal visualized aortic arch and descending thoracic aorta. Dorsal spine demonstrates mild dextroscoliosis.. Normal visualized ribs, clavicles, and shoulders. There is no demonstrated abnormality of the visualized soft tissue structures of the upper abdomen. No significant change since prior exam RAD/Chest 1 View (Portable) IMPRESSION: No acute cardiopulmonary pathology. Electronically Signed: Evert Epstein MD at 19:00 EST , Service support ,
[2020-10-12 19:14] LABS: Absolute Lymphocyte Count 1.05 X10^3/uL (0.83-4.51); Absolute Neutrophil Count 8.8 X10^3/uL (2.0-7.7); Basophil# 0.03 X10^3/uL; Basophil% 0.3 % (0-1); Eosinophil# 0.02 X10^3/uL; Eosinophils% 0.2 % (0-5); Hematocrit 42.9 % (37-47); Hemoglobin 14.1 g/dL (12.0-15.0); Lymphocyte # 1.05 X10^3/ul (4.0); Lymphocyte % 10.3 % (19-41); Mean Corp Hgb Conc 32.9 g/dL (32-36); Mean Corpuscular Hgb 29.2 pg (27.0-32.0); Mean Corpuscular Volume 88.8 fL (81-99); Mean Platelet Vol. 9.7 fl (6.2-12.0); Monocyte# 0.33 X10^3/uL; Monocyte% 3.2 % (0-10); NRBC Flagged by Analyzer 0 % (0-5); Neutrophil # 8.76 X10^3/uL (2.7-7.7); Neutrophil % 85.8 % (47-70); Platelet Count 330 K/mm3 (150-450); RBC Distribution Width CV 12.9 % (11.6-14.6); RBC Distribution Width SD 42.2 fl (35.1-43.9); Red Blood Count 4.83 M/mm3 (4.2-5.4); White Blood Count 10.2 K/mm3 (4.4-11.0)
[2020-10-12] MEDS: Ondansetron 4 MG/2 ML Vial IV (19:20)
[2020-10-12] MEDS: 0.9% Normal Saline 1,000 ML 999 ML IV (19:20)
[2020-10-12] MEDS: Mag Hydrox/Al Hydrox/Simeth 30 ML UDC PO (19:21)
[2020-10-12 19:24] VITALS: O2SAT 98
[2020-10-12 19:26] LABS: AST(SGOT) 48 U/L (15-37); Alanine Aminotransfer ALT/SGPT 62 U/L (13-56); Albumin, Serum 4.3 g/dL (3.2-5.0); Alkaline Phosphatase 121 U/L (45-117); Anion Gap 10 (5-15); BUN 17 mg/dL (7-18); Calcium,Total 9.4 mg/dL (8.5-10.1); Chloride 99 mmol/L (98-107); Creatinine, Serum 0.81 mg/dL (0.55-1.02); EST Glomerular Filtration Rate 79 mL/min (>60); Est Glom Filt Rate - Afr Amer 95 mL/min (>60); Estimated Creatinine Clearance 66.44 ml/min; Globulin 4.4 g/dL (2.2-4.2); Glucose 99 mg/dL (74-106); Lipase 45 U/L (73-393); Potassium 3.5 mmol/L (3.5-5.1); Protein, Total 8.7 g/dL (6.4-8.2); Sodium Level 133 mmol/L (136-145)
[2020-10-12 19:32] LABS: Prothrombin Time (Protime)PT. 12.2 SECONDS (11.7-14.9)
[2020-10-12 19:54] VITALS: PULSE 88; RESP 16
--- NOTE | 2020-10-12 20:08 | CT_ITS ---
STUDY: CT ABDOMEN AND PELVIS WITH CONTRAST REASON FOR EXAM: Female, 55 years old. ABDOMINAL PAIN WITH NAUSEA AND VOMITING RADIATION DOSAGE (If Supplied By Facility): CTDIvol = ( 10.77 ) mGy, DLP = ( 379.80 ) mGycm TECHNIQUE: Transaxial images were obtained from the dome of the diaphragm to the symphysis pubis with oral contrast. IV 100mL Isovue-300 was administered. Sagittal and coronal images were reconstructed. Individualized dose optimization techniques were used for this CT. COMPARISON: 07/03/2020. FINDINGS: The visualized lung bases are unremarkable. The visualized portions of the heart are within normal limits. Normal liver. Status post cholecystectomy. Again seen is a dilated common bile duct measuring 1 cm across. Correlate with liver function tests. Normal spleen. Normal pancreas. Normal bilateral adrenal glands. Normal right kidney. Normal left kidney. Normal visualized stomach. Normal small intestine. Normal colon. The appendix is visualized and appears normal. Normal abdominal aorta. Normal inferior vena cava. Normal retroperitoneum. Normal urinary bladder. Normal abdominal wall. There are diffuse degenerative changes of the visualized lumbar spine. CT/Abdomen/Pelvis W IV Cont ONLY IMPRESSION: No change or acute abnormality. Continued distended common bile duct, correlate with liver function tests. Electronically Signed: Israel Carroll MD at 21:33 EST , Service support ,
[2020-10-12] MEDS: proMETHazine 25 MG/ML Syringe 12.5 MG IV (20:27)
[2020-10-12] MEDS: Morphine 4 MG/ML Syringe IV (20:30)
--- NOTE | 2020-10-12 20:35 | ED.DCSUM_ITS ---
History of Present Illness Chief Complaint: Chest Pain Narrative: Patient presenting for evaluation secondary to epigastric abdominal pain. Patient reports this been going on for quite some time, she is intermittently been seen in the emergency department for this, was actually here for this yesterday. She had a work-up that included D-dimer troponin and cardiac work-up and was discharged. Patient states that she does have a appointment for upper endoscopy to preformed on the third of next month but she continues to have this sharp epigastric abdominal pain that is worse with palpation and does not seem to have any sort of alleviating factors. Patient states that she is not currently on any PPI medications. She denies any black or dark tarry stools. She denies any fevers. She does report that she is mildly short of breath associated with this. She denies any frequent use of NSAIDs or alcohol. Leon whitman simply states that this pain is so severe that she is coming back to the emergency department for further evaluation. Past Medical History - Allergies and Home Meds Allergies/Adverse Reactions: Allergies propoxyphene [From Darvocet-N] Allergy (Verified 10/11/20 16:30) Angioedema Primary Care Physician: Evert Stevenson MD [Primary Care Provider] - Surgical History: cholecystectomy, - - ectopic surgery Smoking Status: Never smoker Review of Systems All systems negative except as indicated General: Denies: Chills, Fever, Sweats Eyes: Denies: Visual changes - bilaterally, Diplopia ENT: Denies: Rhinorrhea, Sore throat Cardiovascular: Denies: Chest pain, Palpitations Respiratory: Reports: Dyspnea Gastrointestinal: Reports: Abdominal pain, Nausea, Vomiting Genitourinary: Denies: Dysuria, Hematuria, Frequency Musculoskeletal: Denies: Back pain, Extremity Pain Skin: Denies: Rash, Wounds Neurological: Denies: Headache, Weakness, Numbness Physical Exam Vital Signs/Narrative: Vital Signs Temp Pulse Resp BP Pulse Ox 10/12/20 19:54 88 16 10/12/20 19:24 98 10/12/20 17:42 97.7 F L 87 16 150/84 H 99 10/12/20 17:39 97.7 F L 91 18 150/84 H 98 Inital Vital Signs reviewed: Yes General: Well nourished, Well developed, - - Tearful but otherwise not in physiologic distress Head: Normocephalic, Atraumatic Eyes: Perrl, EOMI ENT: Moist mucous membranes, No rhinorrhea Neck: Supple, Nontender Cardiovascular: Regular rate, Regular rhythm, No murmurs Respiratory: No distress, CTA bilaterally, Chest nontender Abdomen: Tender - Epigastric no guarding or rebound, abdomen nondistended Back: Nontender, Normal Inspection Extremities: Nontender, No edema Skin: Normal color, No rash Neurological: Alert, Oriented x3, Cranial nerves II-XII grossly intact, Normal Strength, Normal Sensation Psychological: Normal affect, Normal Mood Diagnostic/Tx/Re-eval Clinical Impression(s) from Imaging Studies Chest X-Ray 10/12/20 18:00 IMPRESSION: No acute cardiopulmonary pathology. Electronically Signed: Evert Epstein MD at 19:00 EST , Service support , Abdomen/Pelvis CT 10/12/20 20:08 IMPRESSION: No change or acute abnormality. Continued distended common bile duct, correlate with liver function tests. Electronically Signed: Israel Carroll MD at 21:33 EST , Service support , Laboratory Data 10/12/20 10/12/20 10/12/20 18:56 18:56 18:56 WBC 10.2 RBC 4.83 Hgb 14.1 Hct 42.9 MCV 88.8 MCH 29.2 MCHC 32.9 RDW Std Deviation 42.2 RDW Coeff of Parish 12.9 Plt Count 330 MPV 9.7 Immature Gran % (Auto) 0.200 Neut % (Auto) 85.8 H Lymph % (Auto) 10.3 L Johnston % (Auto) 3.2 Eos % (Auto) 0.2 Baso % (Auto) 0.3 Absolute Neuts (auto) 8.8 H Absolute Lymphs (auto) 1.05 Nucleated RBC % 0 PT 12.2 INR 1.0 Sodium 133 L Potassium 3.5 Chloride 99 Carbon Dioxide 24.0 Anion Gap 10 BUN 17 Creatinine 0.81 Estim Creat Clear Calc 66.44 Est GFR (MDRD) Af Amer 95 Est GFR (MDRD) Non-Af 79 BUN/Creatinine Ratio 21.0 H Glucose 99 Calcium 9.4 Total Bilirubin 0.30 Direct Bilirubin 0.10 AST 48 H ALT 62 H Alkaline Phosphatase 121 H Troponin I < 0.015 Total Protein 8.7 H Albumin 4.3 Globulin 4.4 H Lipase 45 L - Medical Decision Making Patient presented secondary to epigastric pain. Protocol orders were entered, I ordered the patient Protonix, GI cocktail Zofran, and fluids. Patient reports that she got some dry heaves from the GI cocktail, she was additionally ordered morphine and Phenergan. Patient's work-up shows no significant leukocytosis. Chemistry panel shows a very modest elevation of ALT AST alkaline phosphatase with normal bilirubin. Patient continued to have pain, so I did order a CT abdomen and pelvis with IV contrast which shows some dilation of the common bile duct but no other evidence of acute pathology. Patient's cardiac enzyme was negative. This point I feel the patient is appropriate for discharge. Repeat evaluation at the patient at 2140 shows significant improvement of her symptoms. I believe that she would benefit from treatment from a course of omeprazole and Carafate. She is encouraged to follow-up with GI. Patient was discharged in much improved condition. ED Disposition - Plan for ED Patient: Disposition: Home or Assisted Living Diagnosis: Peptic ulcer disease Instructions: ED PUD Prescriptions: Sucralfate [Carafate] 1 gm PO 4X/DAY #120 tab Prescription Printed Omeprazole 40 mg PO DAILY #30 capsule.dr Ramsey Printed Referrals: Flavio Vallejo MD [NON-STAFF] - As soon as possible
[2020-10-12 20:44] VITALS: BP 166/86; PULSE 99; RESP 17; O2SAT 94
[2020-10-12 21:51] VITALS: BP 95/75; PULSE 78; RESP 16; O2SAT 98
== END 2020-10-12 22:07 | disposition home or self-care (01) ==
PROVIDERS: Emergency Provider Emergency Medicine; PCP Family Medicine
DX: K27.9 Peptic ulcer, site unspecified, unspecified as acute or chronic, without hemorrhage or perforation (principal); R06.02 Shortness of breath; Z79.899 Other long term (current) drug therapy; Z90.49 Acquired absence of other specified parts of digestive tract
CPT/HCPCS: 71045; 74177; 80048; 80076; 83690; 84484; 85025; 85610; 93005; 96361; 96365; 96375; 99285; J7030; Q9967; A4216; J2405; J3490

== ENCOUNTER 2020-10-15 12:12 | Emergency (ER) | payer BC, SELFPAY ==
[2020-10-15 12:13] VITALS: BP 157/128; PULSE 77; RESP 18; TEMP 36.2; O2SAT 100; BMI 22.1
[2020-10-15] MEDS: Morphine 4 MG/ML Syringe IV (12:55)
[2020-10-15] MEDS: 0.9% Normal Saline 1,000 ML 1000 ML IV (12:55)
[2020-10-15] MEDS: Ondansetron 4 MG/2 ML Vial IV (12:55)
[2020-10-15 13:06] LABS: Absolute Lymphocyte Count 0.94 X10^3/uL (0.83-4.51); Basophil# 0.02 X10^3/uL; Basophil% 0.2 % (0-1); Eosinophil# 0.09 X10^3/uL; Eosinophils% 0.9 % (0-5); Hematocrit 41.5 % (37-47); Hemoglobin 13.8 g/dL (12.0-15.0); Lymphocyte # 0.94 X10^3/ul (4.0); Lymphocyte % 9.1 % (19-41); Mean Corp Hgb Conc 33.3 g/dL (32-36); Mean Corpuscular Hgb 29.7 pg (27.0-32.0); Mean Corpuscular Volume 89.2 fL (81-99); Mean Platelet Vol. 9.8 fl (6.2-12.0); Monocyte# 0.23 X10^3/uL; Monocyte% 2.2 % (0-10); NRBC Flagged by Analyzer 0 % (0-5); Neutrophil % 87.3 % (47-70); Platelet Count 351 K/mm3 (150-450); RBC Distribution Width CV 12.8 % (11.6-14.6); RBC Distribution Width SD 41.7 fl (35.1-43.9); Red Blood Count 4.65 M/mm3 (4.2-5.4); White Blood Count 10.3 K/mm3 (4.4-11.0)
--- NOTE | 2020-10-15 13:14 | ED.DCSUM_ITS ---
- ER Visit Summary Date of Service: 10/15/20 Chief Complaint: Abdominal pain History of Present Illness: The patient is a 55 F who presents with abdominal pain that became worse again today. Patient was seen here 3 days ago and had a CT scan done at that time. There was no acute intra-abdominal abnormality noted at that time. Patient had lab work done at that time which was also negative. Patient states her pain is localized to the epigastric area. Patient admits to some nausea and vomiting. Patient also admits to some diarrhea. Patient denies any hematemesis or coffee-ground emesis. Patient denies any melena or hematochezia. Patient denies any dysuria or hematuria. Physical Examination: Vital signs are stable. Patient is afebrile. Patient is in no acute distress. Oral mucosa is pink and moist. Neck is supple. Trachea is midline. There is no JVD. Heart was regular rate and rhythm. Lungs are clear and equal bilaterally. Abdomen is soft. Bowel sounds are normal. There is epigastric tenderness. There is no rebound or guarding noted. Cranial nerves II through XII are intact. There are no focal motor or sensory deficits noted. Extremities are intact. There is no calf tenderness or edema. Test Results: CBC and comprehensive metabolic profile were obtained were within normal limits. Lipase was normal. Urinalysis was normal. Given the normal labs, I do not feel repeat imaging is necessary today. Patient did have a CT sc an 3 days ago and I feel the risk for increased radiation outweighs the benefits. Emergency Department Course and Treatment: Patient was given IV fluids, mor phine, and Zofran here. Patient was given a repeat dose of morphine prior to discharge. Patient was instructed to continue her omeprazole and Carafate. Patient was instructed to follow-up with her playground director as scheduled. Patient was given a prescription for a short course of [place]. Patient understood and was agreeable with the plan. All questions were answered. Disposition: Discharge home Impression: 1. Epigastric abdominal pain This note was generated with [employer] dictation software. It may contain incorrect words, spelling, and punctuation that were not noted in review of the chart prior to signing ED Disposition - Plan for ED Patient: Disposition: Home or Assisted Living Diagnosis: Epigastric abdominal pain Instructions: ED Abdominal Pain Unkn Cause Fem, ED PEPTIC ULCER vs GASTRITIS Prescriptions: Hydrocodone Bitart/Apap 5-325 [[place] 5MG-325MG] 1 tab PO Q6H PRN PRN 3 Days #10 tab PRN Reason: Pain Prescription Printed Referrals: Evert Stevenson MD [Primary Care Provider] - 3-5 Days
[2020-10-15 13:23] LABS: ALB/GLOB Ratio 1.1 RATIO (0.9-2.4); AST(SGOT) 23 U/L (15-37); Alanine Aminotransfer ALT/SGPT 38 U/L (13-56); Alkaline Phosphatase 95 U/L (45-117); Anion Gap 9 (5-15); BUN 13 mg/dL (7-18); BUN/Creat Ratio 16.9 RATIO (10-20); Calcium,Total 9.3 mg/dL (8.5-10.1); Chloride 103 mmol/L (98-107); Creatinine, Serum 0.77 mg/dL (0.55-1.02); EST Glomerular Filtration Rate 84 mL/min (>60); Est Glom Filt Rate - Afr Amer 101 mL/min (>60); Globulin 3.8 g/dL (2.2-4.2); Glucose 135 mg/dL (74-106); Lipase 104 U/L (73-393); Protein, Total 7.8 g/dL (6.4-8.2); Sodium Level 138 mmol/L (136-145)
[2020-10-15 13:30] VITALS: BP 178/96; PULSE 78; RESP 16
[2020-10-15 13:38] LABS: Bacteria 0 SEEN /hpf (None Seen); Mucous, Urine 0 SEEN /hpf (<or=2+); Red Blood Cells-Urine 0 SEEN /hpf (0-5); White Blood Cells 0 SEEN /hpf (0-5)
[2020-10-15 13:52] LABS: Color, Urine Yellow (Yellow); Glucose, Dipstick Normal (Normal); Ketone-Dipstick 50 mg/dl (Negative); Leukocyte Esterase-Dipstick Negative /ul (Negative); Nitrite-Dipstick Negative (Negative); Occult Blood-Urine Negative /ul (Negative); Protein-Dipstick Negative (Negative); Specific Gravity, Urine 1.015 (1.002-1.030); Urine Bilirubin Dipstick Negative (Negative); Urine Clarity Clear (Clear); Urine Urobilinogen Normal (Normal)
[2020-10-15 13:59] LABS: Squamous Epithelial Cells - UA 0-5 SEEN /hpf (5-10)
[2020-10-15 16:00] VITALS: BP 150/89; PULSE 90; RESP 20
[2020-10-15] MEDS: Morphine 2 MG/ML Syringe IV (16:13)
[2020-10-15 16:44] VITALS: BP 136/75; PULSE 90; RESP 16
== END 2020-10-15 16:49 | disposition home or self-care (01) ==
PROVIDERS: Emergency Provider Emergency Medicine; PCP Family Medicine
DX: R10.13 Epigastric pain (principal); R11.2 Nausea with vomiting, unspecified; R19.7 Diarrhea, unspecified; I10 Essential (primary) hypertension
CPT/HCPCS: 80053; 81001; 83690; 85025; 96361; 96374; 96375; 96376; 99283; J7030; A4216; J2405

== ENCOUNTER 2020-11-02 17:47 | Emergency (ER) | payer BC, SELFPAY ==
[2020-11-02 17:48] VITALS: BP 131/86; PULSE 119; RESP 18; TEMP 37.3; O2SAT 95; BMI 21.4
[2020-11-02 17:51] VITALS: BP 131/86; PULSE 119; RESP 18; TEMP 37.3; O2SAT 95
--- NOTE | 2020-11-02 18:17 | ED.VISSUMM ---
- ER Visit Summary Date of Service: 11/02/20 Chief Complaint: Abdominal pain, nausea and vomiting History of Present Illness: The patient is a 55 F who has abdominal pain nausea and vomiting. Is been ongoing for couple of days. She has had issues with abdominal pain for months. She just had an endoscopy on October 26. She was started on antibiotics for H. pylori. She cannot keep these down due to nausea. She has sharp epigastric abdominal pain. No diarrhea or constipation. Denies any urinary symptoms. She had a Zoom visit with her GI doctor today who directed her here for further evaluation and treatment Physical Examination: Vital signs reviewed. HEENT exam unremarkable. Heart is tachycardic and regular rhythm without murmurs. Lungs are clear to auscultation. Abdomen is soft with epigastric tenderness. There is no guarding or rebound tenderness. Extremities reveal no edema. Skin exam normal. Neurologic exam normal. Test Results: Laboratory studies unremarkable aside for potassium of 3.2 Emergency Department Course and Treatment: Patient was given IV fluids, GI cocktail and Zofran. She was to having pain so she was given morphine. She states her symptoms are now improving. I will give her Carafate as I feel this is likely gastritis. She states she has nausea medications at home. She is going to call her GI doctor for follow-up. Treatment Plan: [] Disposition: Discharge Impression: Gastritis This note was generated with [employer] dictation software. It may contain incorrect words, spelling, and punctuation that were not noted in review of the chart prior to signing ED Disposition - Plan for ED Patient: Disposition: Home or Assisted Living Instructions: ED Abdominal Pain Unkn Cause Fem Prescriptions: Sucralfate [Carafate] 1 gm PO 4X/DAY #120 tab Transmission Status: Pending to [id number] Referrals: Evert Stevenson MD [Primary Care Provider] -
[2020-11-02] MEDS: 0.9% Normal Saline 1,000 ML 1000 ML IV (18:22)
[2020-11-02] MEDS: Ondansetron 4 MG/2 ML Vial IV (18:22)
[2020-11-02 18:28] LABS: Absolute Lymphocyte Count 1.42 X10^3/uL (0.83-4.51); Absolute Neutrophil Count 5.8 X10^3/uL (2.0-7.7); Basophil# 0.03 X10^3/uL; Basophil% 0.4 % (0-1); Eosinophil# 0.01 X10^3/uL; Eosinophils% 0.1 % (0-5); Hematocrit 41.9 % (37-47); Hemoglobin 13.8 g/dL (12.0-15.0); Lymphocyte # 1.42 X10^3/ul (4.0); Lymphocyte % 17.7 % (19-41); Mean Corp Hgb Conc 32.9 g/dL (32-36); Mean Corpuscular Hgb 29.1 pg (27.0-32.0); Mean Corpuscular Volume 88.4 fL (81-99); Mean Platelet Vol. 9.4 fl (6.2-12.0); Monocyte# 0.71 X10^3/uL; Monocyte% 8.9 % (0-10); NRBC Flagged by Analyzer 0 % (0-5); Neutrophil # 5.83 X10^3/uL (2.7-7.7); Neutrophil % 72.7 % (47-70); Platelet Count 412 K/mm3 (150-450); RBC Distribution Width CV 12.5 % (11.6-14.6); RBC Distribution Width SD 40.5 fl (35.1-43.9); Red Blood Count 4.74 M/mm3 (4.2-5.4)
[2020-11-02] MEDS: Mag Hydrox/Al Hydrox/Simeth 30 ML UDC PO (18:37)
[2020-11-02 18:44] LABS: AST(SGOT) 68 U/L (15-37); Alanine Aminotransfer ALT/SGPT 48 U/L (13-56); Albumin, Serum 3.9 g/dL (3.2-5.0); Alkaline Phosphatase 98 U/L (45-117); Anion Gap 8 (5-15); BUN 10 mg/dL (7-18); Calcium,Total 9.2 mg/dL (8.5-10.1); Chloride 102 mmol/L (98-107); Creatinine, Serum 0.83 mg/dL (0.55-1.02); EST Glomerular Filtration Rate 76 mL/min (>60); Est Glom Filt Rate - Afr Amer 92 mL/min (>60); Estimated Creatinine Clearance 64.84 ml/min; Globulin 3.9 g/dL (2.2-4.2); Glucose 144 mg/dL (74-106); Lipase 80 U/L (73-393); Potassium 3.2 mmol/L (3.5-5.1); Protein, Total 7.8 g/dL (6.4-8.2); Sodium Level 137 mmol/L (136-145)
[2020-11-02] MEDS: Morphine 4 MG/ML Syringe IV (18:55)
[2020-11-02 19:35] VITALS: BP 129/60; PULSE 90; RESP 18; O2SAT 96
== END 2020-11-02 19:35 | disposition home or self-care (01) ==
PROVIDERS: Emergency Provider Emergency Medicine; PCP Family Medicine
DX: K29.70 Gastritis, unspecified, without bleeding (principal)
CPT/HCPCS: 80048; 80076; 83690; 85025; 96361; 96374; 96375; 99284; J7030; A4216; J2405

== ENCOUNTER 2022-10-30 06:17 | Emergency (ER) | payer BC, SELFPAY ==
[2022-10-30 06:18] VITALS: BP 171/86; PULSE 110; RESP 16; TEMP 37.3; O2SAT 97; BMI 21.2
[2022-10-30 06:20] VITALS: BP 171/86; PULSE 107; RESP 18; TEMP 37.3; O2SAT 98
--- NOTE | 2022-10-30 06:49 | EKG12_ITS ---
Test Reason : CP Blood Pressure : / mmHG Vent. Rate : 106 BPM Atrial Rate : 106 BPM P-R Int : 114 ms QRS Dur : 078 ms QT Int : 332 ms P-R-T Axes : 082 082 076 degrees QTc Int : 441 ms Sinus tachycardia Right atrial enlargement Nonspecific ST abnormality Abnormal ECG Confirmed by DYLON GONZALES, ANIBAL ([id number]), editor sound CECY NORIEGA ([id number]) on 11/01/2022 10:30:28 A M Referred By: JUSTINE Confirmed By:TRINITY OSBORNE MD
--- NOTE | 2022-10-30 06:50 | EDS_ITS ---
HPI History of Present Illness Chief Complaint: Chest Pain Narrative Narrative: Patient is a 57-year-old female who states that going back to 2019 she will develop bouts of abdominal pain with nausea and vomiting that will last 1 to 2 days. She states that she had multiple scopes and biopsies and was eventually placed on quadruple therapy and this seemed to improve her symptoms. She states that she does not have the flareups as often but they do occur a few times a year. She states that the most recent event was in January 2022. She states about 4 days ago she developed generalized abdominal discomfort with bouts of nausea and vomiting similar nature to her previous abdominal episodes. She felt like the symptoms would improve after 1 to 2 days but despite giving this 4 days there is been persistent abdominal pain along with nausea and vomiting. She states she is not been able to keep food or fluids down and has concern for dehydration based on the prolonged nature of her symptoms and as they have not resolved as they have in the past presents for evaluation. PFSH PFSH Home Medications ondansetron 4 mg disintegrating tablet 4 mg PO Q8H PRN PRN Nausea #10 tabs 10/11/20 [Rx Last Taken Unknown] omeprazole 40 mg capsule,delayed release 40 mg PO DAILY ##30 10/12/20 [Rx Last Taken Unknown] Allergy/AdvReac Type Severity Reaction Status Date / Time propoxyphene Allergy Angioedema Verified 10/30/22 06:21 [From [place]] Social History Smoking Status: Never smoker [facility] ED Constitutional Constitutional ED: Denies chills or fever(s) ENT ENT ED: Reports sore throat Cardiovascular Cardiovascular: Denies chest pain Respiratory/Chest Respiratory/Chest: Denies cough or dyspnea Gastrointestinal Gastrointestinal: Reports abdominal pain, diarrhea, nausea and vomiting Genitourinary Genitourinary ED: Denies dysuria Musculoskeletal Musculoskeletal: Reports myalgias Integumentary Denies rash Neurologic Neurologic: Denies headache(s) Psychiatric Psychiatric: Reports anxiety Hematologic/Lymphatic Hematologic/Lymphatic: Denies easy bleeding or easy bruising EXAM Physical Exam Const Vital Signs: 10/30/22 06:18 10/30/22 06:20 10/30/22 06:20 Temperature 99.2 F H 99.2 F H Temperature Source Oral Oral Pulse Rate 110 H 107 H Respiratory Rate 16 18 Respiratory Effort Normal Non-Labored Blood Pressure 171/86 H 171/86 H Blood Pressure Mean 114 114 Pulse Ox 97 98 Oxygen Delivery Method Room Air Room Air Positive well nourished and well developed General Appearance ED: well developed HEENT Reports dry mucous membranes HEENT Narrative: Mucous membranes are dry and tacky. No oral lesions no airway edema or compromise noted. Faint cobblestoning in the posterior pharynx consistent with sinus drainage Mouth ED: Yes dry mucous membranes Mouth: dry mucous membranes Eyes PERRL and EOMs intact bilaterally General Eye ED: Negative for scleral icterus Neck supple Neck Narrative: No meningeal signs Chest Wall palpation of chest normal Resp normal respiratory effort and clear to auscultation bilaterally Cardio regular rhythm Rate: tachycardic and other Other Details: Radial pulses are plus 2 out of 4 bilaterally they are equal and symmetric GI non-distended GI Narrative: Abdomen is soft and nondistended with hyperactive bowel sounds. There is pain with palpation in the upper abdomen diffusely without voluntary guarding or rigidity. No pulsatile mass or fluid wave. No increased tympany. Auscultation: hyperactive bowel sounds Palpation: soft Extremity normal to inspection Neuro oriented x3 and CN's II-XII intact bilaterally Sensorium / Orientation: alert Psych Psych Narrative: Patient has a nervous/anxious affect Skin no rashes or lesions noted Skin Narrative: Skin turgor is increased General Skin Exam: Negative for jaundice MDM MDM MDM Narrative Medical decision making narrative: Patient presented to the ER with low-grade temperature and mildly tachycardic. She has upper abdominal pain not chest pain and therefore I chose to focus mainly on the abdominal discomfort and physical exam concerning for dehydration. An EKG was obtained which showed sinus tachycardia and a troponin will be checked as well but at this time I do not feel that her presentation is cardiac in nature. Patient's exam and history is consistent with dehydration and I do feel this is most likely related to an atypical influenza presentation so viral swab of COVID and influenza be obtained. Patient was medicated with morphine and Compazine as she states she has had no improvement with Zofran and given 2 L of fluid secondary to her dehydration. She does not have physical exam findings consistent with an obstruction but because of previous cholecystectomy and ectopic surgery there is risk for this so an acute abdominal x-ray will be obtained. At this time the patient will be signed out to Dr. Woods, the oncoming physician, pending the results of her x-ray and laboratory studies. I do feel that as long as work-up does not reveal any signs of acute kidney injury or severe electrolyte derangement that she should be able to be given symptomatic medications and discharged home. Lab Data Attestation: I reviewed the patient's lab results. Labs: Laboratory Results - last 24 hr 10/30/22 10/30/22 06:20 06:20 WBC 13.7 H RBC 4.61 Hgb 13.6 Hct 40.8 MCV 88.5 MCH 29.5 MCHC 33.3 RDW Std Deviation 42.1 RDW Coeff of [place] 13.1 Plt Count 390 MPV 9.8 Immature Gran % (Auto) 0.400 Neut % (Auto) 77.1 H Lymph % (Auto) 14.4 L [place] % (Auto) 7.8 Eos % (Auto) 0.2 Baso % (Auto) 0.1 Absolute Neuts (auto) 10.6 H Absolute Lymphs (auto) 1.98 Nucleated RBC % 0 Sodium 135 L Potassium 3.0 L Chloride 100 Carbon Dioxide 27.0 Anion Gap 8 BUN 14 Creatinine 0.97 Estim Creat Clear Calc 54.21 Est GFR (MDRD) Af Amer 76 Est GFR (MDRD) Non-Af 63 BUN/Creatinine Ratio 14.4 Glucose 131 H Calcium 9.7 Magnesium 1.9 Total Bilirubin 0.40 Direct Bilirubin 0.09 AST 27 ALT 28 Alkaline Phosphatase 113 Total Protein 9.0 H Albumin 4.5 Globulin 4.5 H Lipase 91 Radiography Diagnostic Testing: Acute abdominal series with 1 view chest as interpreted by the emergency medicine physician shows a nonobstructive bowel gas pattern without perforation/free air and the chest x-ray component reveals no acute infiltrate pneumothorax or pleural effusion Discharge Plan Triage Chief Complaint: Chest Pain ED Provider: Tanner Stephenson Dx/Rx/DC Orders Clinical Impression: Nausea and vomiting, Dehydration, Acute hypokalemia Prescriptions: No Action ondansetron 4 MG tablet 4 mg PO Q8H PRN PRN (Reason: Nausea) Qty: 10 0RF omeprazole 40 MG capsule,delayed release(DR/EC) 40 mg PO DAILY Qty: 30 0RF Primary Care Provider: Petey Archer Referrals: Petey Archer MD [Primary Care Provider] -
[2022-10-30] MEDS: 0.9% Normal Saline 1,000 ML 999 ML IV (06:51)
[2022-10-30] MEDS: Morphine 4 MG/ML Syringe IV (06:51)
[2022-10-30] MEDS: proCHLORPERazine 10 MG/2 ML Vial IV (06:51)
[2022-10-30 06:52] LABS: Absolute Lymphocyte Count 1.98 X10^3/uL (0.83-4.51); Absolute Neutrophil Count 10.6 X10^3/uL (2.0-7.7); Basophil# 0.02 X10^3/uL; Basophil% 0.1 % (0-1); Eosinophil# 0.03 X10^3/uL; Eosinophils% 0.2 % (0-5); Hematocrit 40.8 % (37-47); Hemoglobin 13.6 g/dL (12.0-15.0); Lymphocyte # 1.98 X10^3/ul (0.83-4.51); Lymphocyte % 14.4 % (19-41); Mean Corp Hgb Conc 33.3 g/dL (32-36); Mean Corpuscular Hgb 29.5 pg (27.0-32.0); Mean Corpuscular Volume 88.5 fL (81-99); Mean Platelet Vol. 9.8 fl (6.2-12.0); Monocyte# 1.07 X10^3/uL; Monocyte% 7.8 % (0-10); NRBC Flagged by Analyzer 0 % (0-5); Neutrophil # 10.59 X10^3/uL (2.7-7.7); Neutrophil % 77.1 % (47-70); Platelet Count 390 K/mm3 (150-450); RBC Distribution Width CV 13.1 % (11.6-14.6); RBC Distribution Width SD 42.1 fl (35.1-43.9); Red Blood Count 4.61 M/mm3 (4.2-5.4); White Blood Count 13.7 K/mm3 (4.4-11.0)
--- NOTE | 2022-10-30 07:01 | RAD_ITS ---
EXAM: XR ABDOMEN, 2 VIEWS AND XR CHEST, 1 VIEW CLINICAL INDICATION: abd pain abd pain TECHNIQUE: Frontal view of the chest, frontal view of the abdomen/pelvis and upright or decubitus view of the abdomen. This report was created using [employer] report generation technology. COMPARISON: CT scan abdomen and pelvis 10/12/2020. FINDINGS: CHEST: LUNGS AND PLEURAL SPACES: Unremarkable. No consolidation or edema. No pneumothorax. No effusion. HEART: Unremarkable. Cardiac silhouette not enlarged. MEDIASTINUM: Central airways and mediastinal contour are unremarkable. ABDOMEN: INTRAPERITONEAL SPACE: No free air. GASTROINTESTINAL TRACT: Unremarkable. Non-obstructive. No bowel or stomach distention. ORGANS: There are surgical clips overlying right upper abdomen, consistent with prior cholecystectomy. No organomegaly. No abnormal calcifications. TUBES, LINES AND DEVICES: None. BONES/JOINTS: There is mild levoscoliosis of the lumbar spine and extra scoliosis of the lower thoracic spine. SOFT TISSUES: No acute findings. RAD/Acute Abdomen Inc Chest IMPRESSION: 1. No evidence for acute cardiopulmonary pathology. 2. Nonspecific bowel gas pattern. Electronically Signed: Isaias Farah MD at 7:31 EST Reading Location ID and State: [facility] / [place] , Service support ,
[2022-10-30 07:06] LABS: AST(SGOT) 27 U/L (15-37); Alanine Aminotransfer ALT/SGPT 28 U/L (13-56); Albumin, Serum 4.5 g/dL (3.2-5.0); Alkaline Phosphatase 113 U/L (45-117); Anion Gap 8 (5-15); BUN 14 mg/dL (7-18); BUN/Creat Ratio 14.4 RATIO (10-20); Bilirubin, Direct 0.09 mg/dL (0.00-0.30); Calcium,Total 9.7 mg/dL (8.5-10.1); Chloride 100 mmol/L (98-107); Creatinine, Serum 0.97 mg/dL (0.55-1.02); EST Glomerular Filtration Rate 63 mL/min (>60); Est Glom Filt Rate - Afr Amer 76 mL/min (>60); Estimated Creatinine Clearance 54.21 ml/min; Globulin 4.5 g/dL (2.2-4.2); Glucose 131 mg/dL (74-106); Lipase 91 U/L (73-393); Magnesium 1.9 mg/dL (1.6-2.6); Sodium Level 135 mmol/L (136-145)
[2022-10-30 07:20] VITALS: BP 118/60; PULSE 82; RESP 22; TEMP 37.3; O2SAT 94
[2022-10-30] MEDS: Potassium Chloride Oral Tablet 20 MEQ 40 MEQ PO (07:21)
[2022-10-30 07:40] LABS: Troponin-I HS 16 pg/mL (3.0-54.0)
[2022-10-30 08:04] VITALS: BP 122/78; PULSE 86; RESP 15; TEMP 36.6; O2SAT 99
== END 2022-10-30 08:05 | disposition home or self-care (01) ==
PROVIDERS: Emergency Provider Emergency Medicine; PCP Family Medicine; Visit Provider Emergency Medicine
DX: R11.2 Nausea with vomiting, unspecified (principal); E86.0 Dehydration; E87.6 Hypokalemia
CPT/HCPCS: 74022; 80048; 80076; 83690; 83735; 84484; 85025; 87428; 93005; 96361; 96374; 96375; 99284; J7030